=== PATIENT | male | born 1985 | race Caucasian/White ===

== ENCOUNTER 2021-11-30 07:38 | Emergency (ER) | payer SELFPAY ==
[~2021-11-30] VITALS: Ht 181 cm; Wt 142.0 kg
--- NOTE | 2021-11-30 07:57 | ED Integumentary General ---
General Chief Complaint: Skin/Wound Problems Stated Complaint: RECTAL ABCESS Source: patient, other Exam Limitations: no limitations History of Present Illness Date Seen by Provider: Nov 30, 2021 Time Seen by Provider: 07:45 Initial Comments Patient to the ER by private conveyance with his significant other and chief complaint of last several years he has had recurring abscesses over his tailbone midline. The last one for a couple weeks he has been draining on his own but it continues to recur. He has quite a bit of pain on palpation. No fevers or chills. Does not follow with a doctor. Has not had a pilonidal cyst surgery in the past. Allergies and Home Medications Allergies Coded Allergies: No Known Drug Allergies (Unverified , 11/30/21) Patient Home Medication List Home Medication List Reviewed: Yes Review of Systems Review of Systems Constitutional: No chills, No fever EENTM: No ear discharge, No ear pain Respiratory: No cough, No phlegm, No short of breath Cardiovascular: No chest pain, No palpitations Gastrointestinal: No abdominal pain, No nausea, No vomiting Genitourinary: No discharge, No dysuria Skin: see HPI All Other Systems Reviewed Negative Unless Noted: Yes Past Twnvnwd-Jemcih-Yoapfn Hx Patient Social History Tobacco Use?: No Use of E-Cig and/or Vaping dev: No Substance use?: No Physical Exam Vital Signs Capillary Refill : General Appearance: WD/WN, mild distress HEENT: PERRL/EOMI Cardiovascular: normal peripheral pulses, regular rate, rhythm Respiratory: no respiratory distress, no accessory muscle use Neurologic/Psychiatric: alert, normal mood/affect, oriented x 3 Skin: other (Erythematous swollen tight area of warm, tender to palpation 3 x 3 cm nodule over the tailbone at the top of the gluteal cleft consistent with pilonidal cyst) Progress/Results/Core Measures Progress Progress Note : Time: 08:02 Progress Note Plan to janice the pilonidal cyst to give him some immediate relief using lidocaine and then put him on some antibiotics and have him follow-up with Dr. Frias, general surgery for more definitive therapy. Departure Impression Primary Impression: Pilonidal cyst with abscess Disposition: 01 HOME, SELF-CARE Condition: Stable Departure-Patient Inst. Decision time for Depature: 08:24 Referrals: FRANK FRIAS,LOCAL PHYSICIAN (PCP) Primary Care Physician Patient Instructions: Pilonidal Cyst (DC) Add. Discharge Instructions: You have an infection of a pilonidal cyst which is an abscess and after being drained should start to improve. Bactrim 1 tablet twice a day with food for the next week. Call Dr. Frias, general surgery and request follow-up appointment this week to continue management. Leave the packing in place until you see the surgeon or in 2 days you may pull it yourself or return to the ER to have a wound recheck. Change the dressing over top of the wound at least daily or as often as it becomes soiled. Showers are okay with soap and water but do not use baths. Do not treat with chlorhexidine, iodine, alcohol, hydrogen peroxide as this will breakdown the wound. Promptly return to ER if you develop fevers, intractable vomiting or other worrisome symptoms. Tylenol 1000 mg every 8 hours as needed for pain. Ibuprofen 800 mg every 8 hours as needed for pain All discharge instructions reviewed with patient and/or family. Voiced understanding. Scripts Sulfamethoxazole/Trimethoprim (Bactrim Ds Tablet) 1 Each Tablet 1 EACH PO BID for 7 Days, #14 TAB 0 Refills Prov: XIOMARA ART 11/30/21 Work/School Note: Work Release Form Date Seen in the Emergency Department: Nov 30, 2021 Return to Work: Dec 02, 2021 Restrictions: No Restrictions Copy Copies To 1: FRANK FRIAS TITUS J Nov 30, 2021 07:57
[2021-11-30] MEDS ORDERED: TETANUS,DIPTH,PERTUSS P/F (BOOSTRIX) 0.5 ML VIAL IM ONE (08:00)
[2021-11-30] MEDS ORDERED: SULF1TAB38 PO (08:27)
[2021-11-30 08:36] VITALS: BP 161/107
== END 2021-11-30 08:36 | disposition home or self-care (01) ==
LOC: ER 07:41
DX: L05.01 Pilonidal cyst with abscess (principal); Z23 Encounter for immunization
CPT/HCPCS: 87070; 87205; 90715

== ENCOUNTER 2021-12-30 11:49 | Emergency (ER) | payer SELFPAY ==
[~2021-12-30] VITALS: Ht 182.8 cm; Wt 137.5 kg
[~2021-12-30 11:49] MED LIST: SULF1TAB38 PO
--- NOTE | 2021-12-30 12:41 | ED General ---
General Chief Complaint: Skin/Wound Problems Stated Complaint: RETCAL ABCESS Nursing Triage Note: PT ARRIVAL TO ER WITH COMPLAINT OR CONCERN FOR A CYST/ABSCESS ON THE TOP OF BUTTOCKS THAT OPENED WHILE EN ROUTE TO ER. PT STATES THAT IT WAS A LARGE KNOT THAT BUSTED OPEN AND DRAINED A LARGE AMOUNT OF PUS. PT STATES THAT IT WAS ENOUGH THAT HE WENT BACK HOME AND CHANGED BEFORE COMING HERE. PT HAD A CYST RECENTLY OPENED BY SURGEON. PT RATES PAIN AT A 5/10 AND WAS WORRIED ABOUT IT BECOMING INFECTED. WOUND IS COVERED BY BANDAGE AT THIS TIME. (EDUARDO BRUNSON) History of Present Illness Date Seen by Provider: December 30, 2021 Time Seen by Provider: 12:20 Initial Comments 36 year male with history of pilonidal cyst presents today with new irritation and drainage from the area. He reports having the cyst drained in the ER 1 month ago. He was given antibiotics (Bactrim) at that time as well as instructions on how to pack the wound with gauze, which his girlfriend has been helping him with. Following the procedure in the ER, he followed up with the cyst with Dr. Mitchell. The cyst appeared to be healing well and had closed off without sponginess to the affected area or erythema or signs of infection. He reports that this Tuesday, however, the cyst became irritated and erythematous. The girlfriend noticed today that it seemed to have spread to a new location and on the way here to be seen in the ER it popped open and drained a dark red fluid from a new location than the original drainage. They deny a foul odor with the fluid. He reports having chills yesterday and feeling febrile although he never checked his temperature. He has had some muscle aches in the area, but not widespread. He has a follow up appointment with Dr. Mitchell on January 14. (EDUARDO BRUNSON) Allergies and Home Medications Allergies Coded Allergies: No Known Drug Allergies (Unverified , 11/30/21) Patient Home Medication List Home Medication List Reviewed: Yes (ZIAD GREEN MD) Sulfamethoxazole/Trimethoprim (Bactrim Ds Tablet) 1 Each Tablet, 1 EACH PO BID Prescribed by: XIOMARA ART on 11/30/21 5367 Sulfamethoxazole/Trimethoprim (Bactrim Ds Tablet) 1 Each Tablet, 1 EACH PO BID Prescribed by: ZAID ROSA on 12/30/21 5606 Review of Systems Review of Systems Constitutional: no symptoms reported EENTM: no symptoms reported Respiratory: no symptoms reported Cardiovascular: no symptoms reported Gastrointestinal: no symptoms reported Genitourinary: no symptoms reported Musculoskeletal: no symptoms reported Skin: see HPI Psychiatric/Neurological: No Symptoms Reported Hematologic/Lymphatic: No Symptoms Reported Immunological/Allergic: no symptoms reported (ZAID GREEN MD) Past Punepux-Mhipqy-Pxbfen Hx Patient Social History Tobacco Use?: Yes Tobacco type used: Cigarettes Smoking Status: Current Everyday Smoker Use of E-Cig and/or Vaping dev: No Substance use?: No Alcohol Use?: Yes Alcohol type: Beer, Hard Liquor Alcohol Frequency: Once in a while (once every few months) Pt feels they are or have been: No (EDUARDO BRUNSON) Immunizations Up To Date Influenza Vaccine Up-to-Date: No; Not Current (EDUARDO BRUNSON) Past Medical History Surgery/Hospitalization HX: CYST REMOVED OFF OF LT HEAD Surgeries: Yes (Incision and Drainage of pilonidal cyst) Respiratory: No Cardiac: Yes Hypertension Neurological: No Gastrointestinal: No Musculoskeletal: No Endocrine: No HEENT: No Loss of Vision: Denies Cancer: No Psychosocial: No Integumentary: Yes (history of pilonidal cyst) (EDUARDO BRUNSON) Physical Exam Vital Signs Vital Signs - First Documented 12/30/21 12:11 Temp 36.8 Pulse 94 Resp 18 B/P (MAP) 148/94 (112) Pulse Ox 98 O2 Delivery Room Air (ZAID GREEN MD) Vital Signs Capillary Refill : Less Than 3 Seconds (EDUARDO BRUNSON) Height, Weight, BMI Height: '" Weight: lbs. oz. kg; 41.00 BMI Method: General Appearance: No Apparent Distress, WD/WN, Obese HEENT: PERRL/EOMI, Pharynx Normal Neck: Non Tender, Supple Respiratory: Lungs Clear, Normal Breath Sounds, No Accessory Muscle Use, No Respiratory Distress Cardiovascular: Regular Rate, Rhythm, No Murmur, Normal Peripheral Pulses Gastrointestinal: Normal Bowel Sounds, Non Tender Back: No Vertebral Tenderness, Other (firm, erythematous mass midline in the area of patients sacral base with two small purple nodules below. redish fluid drains from one of said nodules below when applying pressure to the prior pilonidal cyst. No spreading erthema from the affected area or signs of purulent pus.) Extremity: Normal Capillary Refill, No Calf Tenderness Neurologic/Psychiatric: Alert, Oriented x3 Skin: Normal Color, Warm/Dry (except as mentioned under back exam) Lymphatic: No Adenopathy (EDUARDO BRUNSON) Procedures/Interventions I&D : Blade Size: 11 Progress Procedure was performed by Wolf, MS 3 under my direct supervision. Pilonidal cyst was evaluated by ultrasound. There appeared to be complex fluid collection beneath the most fluctuant area of the cyst/abscess. Skin was cleaned with chlorhexidine wipes. Local anesthesia was provided with an injection of lidocaine with epinephrine. A 1 cm incision was then made directly over the most fluctuant region. Serous fluid and blood was expressed. There was no significant purulent drainage. As the prior wound culture did not grow anything, a repeat culture was obtained. A small amount of packing was placed into the wound once all fluid was expressed. Patient was given supplies to continue packing until he could follow-up with Dr. Mitchell. (ZAID GREEN MD) Progress/Results/Core Measures Suspected Sepsis SIRS Temperature: Pulse: 94 Respiratory Rate: 18 Blood Pressure 148 /94 Mean: 112 (EDUARDO BRUNSON) Results/Orders Micro Results Microbiology 12/30/21 Gram Stain, Resulted Pending 12/30/21 Wound Culture - Preliminary, Resulted No growth (ZAID GREEN MD) My Orders Orders - ZAID GREEN MD Lidocaine/Epi 1% 1:100,000 (Xylocaine /E (12/30/21 13:45) Lidocaine/Epi 1% 1:100,000 (Xylocaine 1% (12/30/21 13:51) Wound Culture (12/30/21 14:46) (ZAID GREEN MD) Medications Given in ED (ZAID GREEN MD) Vital Signs/I&O 12/30/21 12/30/21 12:11 14:51 Temp 36.8 Pulse 94 81 Resp 18 18 B/P (MAP) 148/94 (112) 131/87 Pulse Ox 98 98 O2 Delivery Room Air Room Air (ZAID GREEN MD) Vital Signs/I&O Capillary Refill : Less Than 3 Seconds (EDUARDO BRUNSON) Blood Pressure Mean: 112 Progress Note : Progress Note 1330 Looked at pilonidal cyst with ultrasound and visualized fluid pocket that appears to have tract to new area of drainage. Doesn't apppear likely to resolve on its own. Will perform incision and drainage today in the ER to allow the area to heal and have him follow up with Dr. Mitchell at his appointment on January 14. (EDUARDO BRUNSON) Progress Note : Progress Note Bedside ultrasound revealed fluid collection within the pilonidal cyst. Patient desired to have this drained as it was building pressure and discomfort. See procedure note for draining. This cyst may be aseptic as the drainage does not appear purulent. Last culture did not grow anything. We will repeat the culture to be sure we capture any infectious agents. See discharge instructions for further discussion. Case was discussed with Dr. Mitchell. He recommended continuing to pack until follow-up with him to help keep the cyst draining and from reaccumulating fluid. Bactrim was again prescribed. (ZAID GREEN MD) Departure Impression Primary Impression: Pilonidal cyst Disposition: 01 HOME, SELF-CARE Condition: Improved Departure-Patient Inst. Decision time for Depature: 14:41 (ZAID GREEN MD) Referrals: NO,LOCAL PHYSICIAN (PCP/Family) Primary Care Physician Patient Instructions: Pilonidal Cyst (DC) Add. Discharge Instructions: Complete your antibiotic as prescribed. Change the packing daily. Remove the old packing and wipe the skin with a chlorhexidine wipe. Then using clean forceps and scissors, cut a strip of packing off of the role about 2 inches long. Then using either the hemostats or a sterile Q-tip, insert at least half of the packing into the abscess incision. It would be beneficial to take Tylenol and ibuprofen 30 to 60 minutes prior to the repacking to help control pain. Cover with clean gauze to absorb any drainage. It would be best to remove the packing before showering and replacing the packing right after the shower. If you use the hemostats or forceps and need to insert them into the wound, soak them with warm water mixed with a squirt of the chlorhexidine soap. Rinse with hot water. Keep in a clean location such as a new Ziploc bag until next use. Return to the ER if you have worsening of condition, especially if you develop significant inflammatory changes around the incision or fevers. Keep your follow-up appointment with Dr. Mitchell. Call Dr. Mitchell's office or the ER with questions or concerns. All discharge instructions reviewed with patient and/or family. Voiced understan pam. Scripts Sulfamethoxazole/Trimethoprim (Bactrim Ds Tablet) 1 Each Tablet 1 EACH PO BID, #28 TAB Prov: ZAID GREEN MD 12/30/21 Medical Student Attestation and Attending Note: I have personally interviewed and examined this patient along with Eduardo Brunson, MS 3. I have reviewed student documentation including history, phy sical, and assessments. I agree with the documentation except where otherwise noted. Exam: General: Alert, oriented, no acute distress, well developed HEENT: Normocephalic and atraumatic Heart: Regular rate and rhythm without murmur Lungs: Clear to auscultation bilaterally with normal effort Skin: Warm and dry without rashes, pilonidal cyst near the gluteal cleft. There are 2 nodular lesions at the left inferior aspect of the cyst. Each has a pore at the center and fluid can be expressed from the pores. They are tender. These nodular lesions may represent chronic drainage pores with accumulation of granulation tissue. (ZAID GREEN MD) Copy Copies To 1: JAY MITCHELL CARSON December 30, 2021 12:40 ZAID GREEN MD December 30, 2021 14:45
[2021-12-30] MEDS ORDERED: LIDOCAINE/EPI 1%-1:100,000 (XYLOCAINE) 20ML INJ ONE (13:45)
[2021-12-30] MEDS ORDERED: LIDOCAINE/EPI 1%-1:100,000 (XYLOCAINE) 10 ML ONE (13:51)
[2021-12-30] MEDS ORDERED: SULF1TAB38 PO (14:46)
[2021-12-30 14:51] VITALS: BP 131/87
== END 2021-12-30 14:54 | disposition home or self-care (01) ==
LOC: EDUNIT# 11:49 → ER 11:51
DX: L05.01 Pilonidal cyst with abscess (principal); F17.210 Nicotine dependence, cigarettes, uncomplicated
CPT/HCPCS: 87070; 87205

== ENCOUNTER 2022-02-11 05:33 | Outpatient (CLI) | payer OTHER ==
[~2022-02-11] VITALS: Ht 180.3 cm; Wt 143.6 kg
== END 2022-02-16 09:23 | disposition home or self-care (01) ==
LOC: PREOP 05:33
PROVIDERS: ATTEND Surgery
DX: Z01.818 Encounter for other preprocedural examination (principal)

== ENCOUNTER 2022-02-18 08:44 | Day surgery (SDC) | payer OTHER ==
[2022-02-18] VITALS (9 sets, daily range): BP systolic 134–164; BP diastolic 84–104
[~2022-02-18] VITALS: Ht 180.3 cm; Wt 143.6 kg
[2022-02-18] MEDS ORDERED: LACTATED RINGERS 1,000 ML IV PRN (09:15)
[2022-02-18] MEDS ORDERED: ceFAZolin 2 GM IV Premixed 50 ML IV ONE (09:15)
[2022-02-18] MEDS ORDERED: MIDAZOLAM 2 MG/2 ML (VERSED) VIAL IVP ONE (09:30)
[2022-02-18] MEDS ORDERED: BUP/EPI 0.5% 1:200,000 (MARCAINE) 10ML VIAL IJ ONE (09:34)
--- NOTE | 2022-02-18 09:38 | Progress Note-Pre Operative ---
Pre-Operative Progress Note H&P Reviewed The H&P was reviewed, patient examined and no changes noted. Date Seen by Provider: Feb 18, 2022 Time Seen by Provider: 09:37 Date H&P Reviewed: Feb 18, 2022 Time H&P Reviewed: 09:37 Pre-Operative Diagnosis: Pilonidal cyst JAY MITCHELL DO Feb 18, 2022 09:37
[2022-02-18 09:44] LABS: AMPHETAMINE SCREEN, URINE NEGATIVE (NEGATIVE); BARBITURATE SCREEN URINE NEGATIVE (NEGATIVE); BENZODIAZEPINES SCREEN URINE NEGATIVE (NEGATIVE); CANNABINOID SCREEN, URINE POSITIVE (NEGATIVE); COCAINE SCREEN URINE NEGATIVE (NEGATIVE); METHADONE STAT NEGATIVE (NEGATIVE); OPIATE SCREEN URINE NEGATIVE (NEGATIVE); OXYCODONE STAT NEGATIVE (NEGATIVE); PROPOXYPHENE STAT NEGATIVE (NEGATIVE); TRICYCLIC ANTIDEPRESSANTS SCRE NEGATIVE (NEGATIVE)
[2022-02-18] MEDS ORDERED: NEOSTIGMINE (BLOXIVERZ ) 1 MG/1ML 10 ML VIAL ONE (10:02)
[2022-02-18] MEDS ORDERED: ONDANSETRON 4 MG/2 ML (SDV) Z0FRAN ONE (10:02)
[2022-02-18] MEDS ORDERED: GLYCOPYRROLATE 0.2 MG/ML (ROBINUL) 2 ML VIAL ONE (10:02)
[2022-02-18] MEDS ORDERED: ROCURONIUM 50 MG/5 ML (ZEMURON) VIAL IV ONE (10:02)
[2022-02-18] MEDS ORDERED: MIDAZOLAM 2 MG/2 ML (VERSED) VIAL ONE (10:02)
[2022-02-18] MEDS ORDERED: LIDOCAINE PF 2% 5 ML (XYLOCAINE) VIAL ONE (10:02)
[2022-02-18] MEDS ORDERED: fentaNYL INJ 100 MCG/2 ML AMP ONE (10:02)
[2022-02-18] MEDS ORDERED: proPOfol 200 MG/20 ML (DIPRIVAN) VIAL IV ONE (10:02)
[2022-02-18] MEDS: BUP/EPI 0.5% 1:200,000 (MARCAINE) 10ML VIAL IJ ONE (10:58)
[2022-02-18] MEDS ORDERED: HYDROmorphone 2 MG/ML VIAL (DILAUDID) ONE (10:58)
[2022-02-18] MEDS ORDERED: ESMOLOL 100 MG/10 ML (BREVIBLOC) VIAL ONE (11:04)
[2022-02-18] MEDS ORDERED: SEVOFLURANE (ULTANE) 15 ML INHAL SOLN ONE (11:14)
[2022-02-18] MEDS ORDERED: KETOROLAC 30 MG/ML VIAL ONE (11:17)
[2022-02-18] MEDS ORDERED: DOCU-143 PO (11:23)
[2022-02-18] MEDS ORDERED: ACHD5005 PO (11:23)
--- NOTE | 2022-02-18 11:29 | Discharge Inst-Simple/Standard ---
Discharge Inst-Standard Discharge Medications New, Converted or Re-Newed RX: Transmitted to Pharmacy Patient Instructions/Follow Up Plan of Care/Instructions/FU: Monika office tomorrow. Monika 2 weeks. Activity as Tolerated: Yes Discharge Diet: Regular Diet Other Inst to Patient Follow up Appt: Make appointment for tomorrow and 2 week. Instructions: No lifting greater than 10 pounds. No strenuous activity. May shower in 24 hours, no tub bath or soaking. Use incentive spirometer at home as directed. No Smoking Skin/Wound Care: Irrigate and pack daily and after bowel movements. Symptoms to Report: Appetite Changes, Extremity Discoloration, Numbness/Tingling, Swelling Increased, Bleeding Excessive, Eyesight Changes, Pain Increased, Urine Color Change, Constipation(Persistent), Fever over 101 degree F, Pain/Pressure in chest, Urinating Difficulty, Cough Up/Vomit Blood, Heart Beat Irreg/Pounding, Pain/Pressure in jaw, Vaginal Bleeding Increase, Cramps in feet or legs, Lightheadedness, Pain/Pressure in shoulder, Diarrhea(Persistent), Memory Changes Suddenly, Questions/Concerns, Weight gain consecutive days, Dizziness/Fainting, Nausea/Vomiting, Shortness of Breath, Weight gain over 2 pounds If questions or concerns contact your physician Or seek help at emergency department. JAY MITCHELL DO Feb 18, 2022 11:28
--- NOTE | 2022-02-18 11:30 | Progress Note-Post Operative ---
Post-Operative Progess Note Surgeon (s)/Corporate Pilot (s) Surgeon JAY MITCHELL DO Corporate Pilot: na Pre-Operative Diagnosis Pilonidal cyst Post-Operative Diagnosis same Procedure & Operative Findings Date of Procedure 02/18/22 Procedure Performed/Findings excision pilonidal cyst Anesthesia Type general Estimated Blood Loss Estimated blood loss (mL): minimal Specimens/Packing Specimens Removed skin and subcutaneous tissue pilonidal cyst JAY MITCHELL DO Feb 18, 2022 11:30
[2022-02-18] MEDS ORDERED: HYDROmorphone 2 MG/ML VIAL (DILAUDID) IV ONE (11:45)
[2022-02-18] MEDS ORDERED: ONDANSETRON 4 MG/2 ML (SDV) Z0FRAN IVP PRN (11:45)
--- NOTE | 2022-02-18 13:23 | Anesthesia-General Post-Op ---
General Patient Condition Mental Status/LOC: Same as Preop Cardiovascular: Satisfactory Nausea/Vomiting: Absent Respiratory: Satisfactory Pain: Controlled Complications: Absent Post Op Complications Complications None Follow Up Care/Instructions Patient Instructions None needed. Anesthesia/Patient Condition Patient Condition Patient is doing well, no complaints, stable vital signs, no apparent adverse anesthesia problems. No complications reported per nursing. D/C home per [facility] Criteria: Yes PERRY LANDIS CRNA Feb 18, 2022 13:23
--- NOTE | 2022-02-18 21:37 | OPERATIVE REPORT ---
DATE OF SERVICE: 02/18/2022 PREOPERATIVE DIAGNOSIS: Pilonidal cyst. POSTOPERATIVE DIAGNOSIS: Pilonidal cyst. PROCEDURE: Excision of pilonidal cyst, 9 x 5 x 4 cm. SURGEON: Jay Frank DO ANESTHESIA: General. ESTIMATED BLOOD LOSS: Minimal. COMPLICATIONS: None. INDICATIONS: The patient is a 36-year-old male with multiple doses of the pilonidal cyst becoming infected. He understands risks and benefits of procedure and wishes to proceed. Consent was signed in the chart. DESCRIPTION OF PROCEDURE: The patient was taken to the operating suite, was placed in a prone position. A timeout was performed. Local anesthetic was infiltrated around the pilonidal area. Elliptical incision was made around the visible disease. Skin and subcutaneous tissue was then removed with cautery, taken down to the sacral fascia and removing the skin and subcutaneous tissue in its entirety. Overall, dimensions was 9 x 5 x 4 cm. Wound was then irrigated. Wound was then packed with Betadine and Kerlix and sterile bandages were applied. The patient tolerated procedure well without any complications, taken to recovery room in stable condition. Job ID: [id number] DocumentID: [id number] Dictated Date: 02/18/2022 12:56:23 Communication Studies Professor Date: 02/18/2022 21:36:18 Dictated By: JAY FRANK DO
== END 2022-02-18 14:20 | disposition home or self-care (01) ==
LOC: SDC 08:44
PROVIDERS: ATTEND Surgery
DX: L05.91 Pilonidal cyst without abscess (principal)
CPT/HCPCS: 80306; 87081; 88304